=== PATIENT | female | born 1960 | race Caucasian/White ===

== ENCOUNTER → 2016-10-28 | Outpatient (CLI) | payer OTHER ==
[~2016-10-28] MED LIST: ALPR.25 PO; PRED-1 PO; ZITH200S PO
--- NOTE | 2016-10-28 16:08 | ECHRPT ---
Indication: Shortness of breath CONCLUSIONS Normal left ventricular size. Wall thickness is measured at the upper limits of normal. The left ventricular systolic function is low normal with an estimated ejection fraction in the rang e of 50- 55%. Mild mitral valve regurgitation. The aortic valve is not well visualized. No aortic valve regurgitation. There is trace tricuspid valve regurgitation IVC measures l.6 BP: / HR: Rhythm: Sinus MEASUREMENTS (Male / Female) Normal Values Technical Quality:Fair 2D ECHO LV Diastolic Diameter PLAX 3.2 cm 4.2 - 5.9 / 3.9 - 5.3 cm LV Systolic Diameter PLAX 2.3 cm IVS Diastolic Thickness 1.1 cm 0.6 - 1.0 / 0.6 - 0.9 cm LVPW Diastolic Thickness 1.0 cm 0.6 - 1.0 / 0.6 - 0.9 cm LV Relative Wall Thickness 0.6 RV Internal Dim ED PLAX 2.2 cm M-MODE Aortic Root Diameter MM 2.5 cm LA Systolic Diameter MM 3.6 cm LA Ao Ratio MM 1.4 AV Cusp Separation MM 1.7 cm DOPPLER Mitral E Point Velocity 74.0 cm/s Mitral A Point Velocity 59.7 cm/s Mitral E to A Ratio 1.2 LV E' Lateral Velocity 12.5 cm/s Mitral E to LV E' Lateral Ratio 5.9 LV E' Septal Velocity 10.3 cm/s Mitral E to LV E' Septal Ratio 7.2 TR Peak Velocity 247.0 cm/s TR Peak Gradient 24.4 mmHg FINDINGS LEFT VENTRICLE Normal left ventricular size. Wall thickness is measured at the upper limits of normal. The left ventricular systolic function is low normal with an estimated ejection fraction in the rang e of 50- 55%. RIGHT VENTRICLE Normal right ventricular size and systolic function. LEFT ATRIUM The left atrial size is normal. RIGHT ATRIUM The right atrial size is normal. ATRIAL SEPTUM Normal atrial septal thickness without atrial level shunting by limited color doppler interrogation. AORTA The aortic root and proximal ascending aorta are normal in size on limited imaging. MITRAL VALVE Structurally normal mitral valve. Mild mitral valve regurgitation. AORTIC VALVE The aortic valve is not well visualized. No aortic valve regurgitation. TRICUSPID VALVE Structurally normal tricuspid valve. There is trace tricuspid valve regurgitation PULMONARY VALVE The pulmonary valve is not well visualized. VESSELS IVC measures l.6 PERICARDIUM No pericardial effusion. Jonny Flores MD (Electronically Signed) Final Date:28 October 2016 16:06
== END ==
LOC: HECH 08:43
PROVIDERS: ATTEND Pediatrics
DX: R07.9 Chest pain, unspecified (principal); R00.2 Palpitations; R06.02 Shortness of breath
CPT/HCPCS: 93306